=== PATIENT | male | born 1955 | race Hispanic/Latino ===

== ENCOUNTER 2017-12-07 13:54 | Emergency (ER) | payer OTHER, SELFPAY ==
[2017-12-07 14:54] LABS: BASOPHILS % (AUTO) 0.4 % (0.0-5.0); EOSINOPHILS % (AUTO) 7.7 % (0.0-8.0); HEMATOCRIT 42.5 % (42-54); LYMPHOCYTES % (AUTO) 23.6 % (21.0-51.0); MEAN CORPUSCULAR HEMOGLOBIN 30.4 pg (27.0-33.0); MEAN CORPUSCULAR HGB CONC 34.9 g/dL (32.0-36.0); MEAN CORPUSCULAR VOLUME 87.1 fL (79-99); MONOCYTES % (AUTO) 7.5 % (3.0-13.0); NEUTROPHILS % (AUTO) 60.8 % (40.0-77.0); PLATELET COUNT (AUTO) 203 K/uL (130-400); RED BLOOD CELL COUNT(AUTO) 4.87 MIL/uL (4.50-6.20); RED CELL DISTRIBUTION WIDTH 13.5 % (11.0-15.5); WHITE BLOOD COUNT (AUTO) 7.5 K/uL (4.8-10.8)
[2017-12-07 15:06] LABS: CREATININE 0.9 mg/dL (0.5-1.5); POTASSIUM 3.8 mmol/L (3.5-5.1)
[2017-12-07 15:12] LABS: ALBUMIN 3.9 g/dL (3.5-5.0); BILIRUBIN,TOTAL 0.3 mg/dL (0.2-1.0); TOTAL PROTEIN, SERUM 7.4 g/dL (6.0-8.3)
[2017-12-07] MEDS ORDERED: ACETAMINOPHEN EXTRA STRENGTH 500 MG TABLET ONE (15:39)
[2017-12-07] MEDS ORDERED: MECLIZINE HCL 25 MG TABLET ONE (15:39)
[2017-12-07] MEDS ORDERED: SODIUM CHLORIDE 0.9% 500ML 500 ML IV ONE (15:47)
== END 2017-12-07 16:16 | disposition home or self-care (01) ==
LOC: EDH 13:54
DX: H81.10 Benign paroxysmal vertigo, unspecified ear (principal)
CPT/HCPCS: 36415; 70450; 80053; 85025; 93005; 99285; J7040

== ENCOUNTER 2020-11-08 06:22 | Emergency (ER) | payer OTHER ==
[~2020-11-08] VITALS: Ht 167.6 cm; Wt 71.2 kg
[~2020-11-08 06:22] MED LIST: AEC81 PO; ATOR20TA65 PO; FURO20TA6 PO; METO25 PO; OMEP20CA12 PO; TAMS-1 PO
[2020-11-08 06:53] VITALS: BP 132/81
[2020-11-08 07:39] VITALS: BP 120/70
[2020-11-08 07:53] LABS: BASOPHILS % (AUTO) 0.2 % (0.0-5.0); EOSINOPHILS % (AUTO) 1.8 % (0.0-8.0); HEMATOCRIT 38.7 % (42-54); LYMPHOCYTES % (AUTO) 8.1 % (21.0-51.0); MEAN CORPUSCULAR HEMOGLOBIN 29.1 pg (27.0-33.0); MEAN CORPUSCULAR HGB CONC 33.6 g/dL (32.0-36.0); MEAN CORPUSCULAR VOLUME 86.8 fL (79-99); MONOCYTES % (AUTO) 8.1 % (3.0-13.0); NEUTROPHILS % (AUTO) 81.1 % (40.0-77.0); PLATELET COUNT (AUTO) 515 K/uL (130-400); RED BLOOD CELL COUNT(AUTO) 4.46 MIL/uL (4.50-6.20); RED CELL DISTRIBUTION WIDTH 12.1 % (11.0-15.5); WHITE BLOOD COUNT (AUTO) 13.1 K/uL (4.8-10.8)
[2020-11-08 08:04] LABS: INR 1.15 (0.85-1.15); PROTHROMBIN TIME 12.4 SEC (9.6-11.6)
[2020-11-08 08:21] LABS: ALANINE AMINOTRANSFERASE 23 U/L (12-78); ALBUMIN 2.9 g/dL (3.5-5.0); ASPARTATE AMINOTRANSFERASE 14 U/L (10-37); BILIRUBIN,TOTAL 0.6 mg/dL (0.2-1.0); CARBON DIOXIDE 28 mmol/L (21-32); CHLORIDE 100 mmol/L (101-111); CREATINE KINASE, TOTAL 31 U/L (21-232); GLOMERULAR FILTR. RATE CALC 80 mL/min (>60); GLUCOSE,RANDOM 121 mg/dL (70-105); LIPASE 59 U/L (114-286); MYOGLOBIN 38 ng/mL (10-92); POTASSIUM 4.2 mmol/L (3.5-5.1); SODIUM SERUM 136 mmol/L (136-145); TOTAL PROTEIN, SERUM 7.5 g/dL (6.0-8.3); TROPONIN I < 0.04 ng/mL (0.00-0.06); UREA NITROGEN, BLOOD 15 mg/dL (7-18)
[2020-11-08 08:53] LABS: B-TYPE NATRIURETIC PEPTIDE 177 pg/mL (0-100)
[2020-11-08 09:32] VITALS: BP 114/70
== END 2020-11-08 11:11 | disposition left against medical advice (07) ==
LOC: EDH 06:31
DX: J90 Pleural effusion, not elsewhere classified (principal); J98.11 Atelectasis; R07.89 Other chest pain; I05.9 Rheumatic mitral valve disease, unspecified
CPT/HCPCS: 36415; 71045; 80053; 82550; 83690; 83874; 83880; 84484; 85025; 85610; 93005

== ENCOUNTER 2021-01-25 10:26 | Emergency (ER) | payer OTHER ==
[~2021-01-25] VITALS: Ht 167.6 cm; Wt 72.6 kg
[2021-01-25 11:26] LABS: BASOPHILS % (AUTO) 0.3 % (0.0-5.0); EOSINOPHILS % (AUTO) 3.6 % (0.0-8.0); HEMATOCRIT 42.7 % (42-54); LYMPHOCYTES % (AUTO) 11.7 % (21.0-51.0); MEAN CORPUSCULAR HEMOGLOBIN 27.8 pg (27.0-33.0); MEAN CORPUSCULAR HGB CONC 32.3 g/dL (32.0-36.0); MEAN CORPUSCULAR VOLUME 85.9 fL (79-99); MONOCYTES % (AUTO) 8.4 % (3.0-13.0); NEUTROPHILS % (AUTO) 75.7 % (40.0-77.0); PLATELET COUNT (AUTO) 281 K/uL (130-400); RED BLOOD CELL COUNT(AUTO) 4.97 MIL/uL (4.50-6.20); RED CELL DISTRIBUTION WIDTH 13.7 % (11.0-15.5); WHITE BLOOD COUNT (AUTO) 10.3 K/uL (4.8-10.8)
[2021-01-25 11:43] LABS: ALBUMIN 3.3 g/dL (3.5-5.0); BILIRUBIN,TOTAL 0.6 mg/dL (0.2-1.0); TOTAL PROTEIN, SERUM 6.8 g/dL (6.0-8.3)
[2021-01-25 11:59] LABS: B-TYPE NATRIURETIC PEPTIDE 53 pg/mL (0-100)
[2021-01-25 16:00] VITALS: BP 98/50
[2021-01-25 16:36] VITALS: BP 139/85
== END 2021-01-25 17:18 | disposition home or self-care (01) ==
LOC: EDH 10:26
DX: I10 Essential (primary) hypertension (principal); I31.3 Pericardial effusion (noninflammatory); R07.89 Other chest pain; E78.5 Hyperlipidemia, unspecified; I48.91 Unspecified atrial fibrillation; Z79.82 Long term (current) use of aspirin; Z79.899 Other long term (current) drug therapy; Z95.1 Presence of aortocoronary bypass graft; Z95.2 Presence of prosthetic heart valve
CPT/HCPCS: 36415; 71045; 80053; 83880; 84484; 85025; 93005; 93306; 93356

== ENCOUNTER 2021-11-29 06:43 | Day surgery (SDC) | payer OTHER ==
[2021-11-25 10:46] LABS: BASOPHILS % (AUTO) 0.5 % (0.0-5.0); EOSINOPHILS % (AUTO) 6.4 % (0.0-8.0); HEMATOCRIT 46.5 % (42-54); LYMPHOCYTES % (AUTO) 22.3 % (21.0-51.0); MEAN CORPUSCULAR HEMOGLOBIN 29.7 pg (27.0-33.0); MEAN CORPUSCULAR HGB CONC 33.8 g/dL (32.0-36.0); MEAN CORPUSCULAR VOLUME 87.9 fL (79-99); MONOCYTES % (AUTO) 7.4 % (3.0-13.0); NEUTROPHILS % (AUTO) 63.1 % (40.0-77.0); PLATELET COUNT (AUTO) 246 K/uL (130-400); RED BLOOD CELL COUNT(AUTO) 5.29 MIL/uL (4.50-6.20); RED CELL DISTRIBUTION WIDTH 13.1 % (11.0-15.5); WHITE BLOOD COUNT (AUTO) 6.1 K/uL (4.8-10.8)
[2021-11-25 11:01] LABS: ALBUMIN 3.6 g/dL (3.5-5.0); CREATININE 1.9 mg/dL (0.5-1.5); POTASSIUM 3.2 mmol/L (3.5-5.1); TOTAL PROTEIN, SERUM 7.3 g/dL (6.0-8.3)
[~2021-11-29] VITALS: Ht 167.6 cm; Wt 77.1 kg
[2021-11-29] VITALS (9 sets, daily range): BP systolic 121–170; BP diastolic 76–91
[2021-11-29] MEDS ORDERED: 0.9%NACL 1000ML 1,000 ML IV ONE (07:12)
[2021-11-29] MEDS ORDERED: amiodarone PO (07:30)
[2021-11-29] MEDS ORDERED: APIX5TAB PO (07:30)
[2021-11-29] MEDS ORDERED: HYDR12.54 PO (07:30)
[2021-11-29] MEDS ORDERED: LOSA25TA41 PO (07:30)
[2021-11-29] MEDS ORDERED: LIDOCAINE PF 100MG/5ML (2%) SYRINGE 5ML ONE (08:53)
[2021-11-29] MEDS ORDERED: PROPOFOL 10 MG/ML 20ML VIAL IV ONE ×2 (08:53→08:56)
== END 2021-11-29 09:55 | disposition home or self-care (01) ==
LOC: DAH 06:43
PROVIDERS: ATTEND Student in an Organized Health Care Education/Training Program
DX: R10.13 Epigastric pain (principal); K44.9 Diaphragmatic hernia without obstruction or gangrene; K29.50 Unspecified chronic gastritis without bleeding; I10 Essential (primary) hypertension; Z79.899 Other long term (current) drug therapy; Z98.890 Other specified postprocedural states; Z80.9 Family history of malignant neoplasm, unspecified
CPT/HCPCS: 87635; 80053; 85025; 36415; 43239; 88305; 88342; C9803; J7030; J2001; J2704 ×2; A4620; A4215 ×2; A4223; A4222; A4221; A4663; A4606